=== PATIENT | male | born 1995 | race Hispanic/Latino ===

== ENCOUNTER 2022-01-28 17:03 | Emergency (ER) | payer SELFPAY ==
[~2022-01-28] VITALS: Ht 177.8 cm; Wt 81.0 kg
[2022-01-28 17:16] VITALS: BP 130/88
[2022-01-28 17:30] VITALS: BP 124/88
[2022-01-28 18:00] VITALS: BP 108/64
[2022-01-28] MEDS ORDERED: AMOX/K CLAV875 M1 PO (18:30)
[2022-01-28 18:55] VITALS: BP 108/64
== END 2022-01-28 18:58 | disposition home or self-care (01) | DRG 395 ==
LOC: ED 17:03
DX: K61.1 Rectal abscess (principal)